=== PATIENT | female | born 1950 | race Hispanic/Latino ===

== ENCOUNTER 2024-08-17 09:14 | Emergency (ER) | payer MEDICARE ==
[2024-08-17] MEDS ORDERED: Dicyclomine 20 MG/2 ML VIAL ONE (09:52)
[2024-08-17] MEDS ORDERED: Ondansetron PF 4 MG/2 ML Vial ONE (09:53)
[2024-08-17 09:56] LABS: #Basophils 0.04 10x3/uL (0.0-0.2); #Eosinophils Less than 0.03 10x3/uL (0.0-0.7); %Basophils 0.3 % (0.0-1.0); %Eosinophils 0.1 % (0.0-10.0); %Lymphocytes 11.3 % (21.0-51.0); %Monocytes 12.2 % (0.0-10.0); %Neutrophils 75.5 % (42.0-75.0); Hematocrit 40.5 % (36.0-47.0); Mean Corpuscular HGB CONC 32.1 g/dL (32.0-36.0); Mean Corpuscular Hemoglobin 29.3 pg (27.0-31.0); Mean Corpuscular Volume 91.4 fL (78.0-98.0); Mean Platelet Volume 9.6 fL (7.4-10.4); Platelet Count 305 10x3/uL (130-400); RBC Distribution Width 13.1 % (11.5-14.5); Red Blood Cell (RBC) Count 4.43 mill/uL (4.20-5.40)
[2024-08-17 10:25] LABS: ALT (SGPT) 19 U/L (8-55); AST (SGOT) 25 U/L (5-34); Albumin 2.7 g/dL (3.4-4.8); Alkaline Phosphatase 90 U/L (40-110); Anion Gap 16 mmol/L (10-20); BUN (Urea Nitrogen) 16 mg/dL (9.8-20.1); Bilirubin, Total 0.6 mg/dL (0.2-1.2); Calc. Creatinine Clearance 0 mL/min (70-130); Calcium 9.2 mg/dL (7.8-10.44); Carbon Dioxide 23 mmol/L (23-31); Chloride 95 mmol/L (98-107); Estimated GFR 46; Globulin 4.3 g/dL (2.4-3.5); Glucose 373 mg/dL (83-110); Lipase 18 U/L (8-78); Potassium 5.3 mmol/L (3.5-5.1); Sodium 129 mmol/L (136-145)
[2024-08-17 10:28] LABS: Troponin I Less than 0.010 ng/mL (< 0.028)
[2024-08-17] MEDS ORDERED: Iopamidol-370 76% 500 ML MDV (1 ML CHARGE) ONE (10:28)
[2024-08-17 10:54] LABS: Bilirubin Negative (Negative); Blood, Urine 1+ (Negative); CAUTI Indications for Culture Pelvic or flank pain; Clarity Turbid (Clear); Glucose, Urine (Dipstick) Greater than 1000 mg/dL (Negative); Ketone, Urine 40 mg/dL (Negative); Leukocyte 500 Leu/uL (Negative); Nitrite Negative (Negative); Protein, Urine (Dipstick) 20 mg/dL (Neg-Trace); Specific Gravity, Urine 1.014 (1.002-1.036); Urobilinogen Normal mg/dL (Less than 2); WBC/HPF Greater than 50 HPF (0-3); pH, Urine 5.5 (5.0-9.0)
[2024-08-17 10:55] LABS: Bacteria/HPF 1+ HPF (None Seen)
[2024-08-17 10:56] LABS: Urine Culture Reflex Yes Yes
[2024-08-17] MEDS ORDERED: cefTRIAXone (ROCEPHIN) 2 GM VIAL ONE (11:10)
[2024-08-17] MEDS ORDERED: Sodium Chloride 0.9% 100 ML ONE (11:10)
== END 2024-08-17 12:44 | disposition home or self-care (01) ==
LOC: ERS 09:14
DX: N39.0 Urinary tract infection, site not specified (principal); E11.9 Type 2 diabetes mellitus without complications; I10 Essential (primary) hypertension
CPT/HCPCS: 71045; 74177; 80053; 81001; 83690; 83735; 83880; 84484; 85025; 87077; 87086; 87186; 87428; 93005; 96365; 96372; 96375; 99285; J0696; J2405; Q9967; 36415

== ENCOUNTER 2024-12-24 08:47 | Emergency (ER) | payer MEDICARE ==
[2024-12-24] MEDS ORDERED: Dicyclomine 20 MG TAB ONE (09:48)
[2024-12-24] MEDS ORDERED: Ondansetron PF 4 MG/2 ML Vial ONE ×2 (09:48→10:03)
[2024-12-24 09:55] LABS: #Basophils Less than 0.03 10x3/uL (0.0-0.2); %Basophils 0.1 % (0.0-1.0); %Eosinophils 0.3 % (0.0-10.0); %Lymphocytes 8.2 % (21.0-51.0); %Monocytes 6.1 % (0.0-10.0); %Neutrophils 84.7 % (42.0-75.0); Hematocrit 42.3 % (36.0-47.0); Hemoglobin 14.2 g/dL (12.0-16.0); Mean Corpuscular HGB CONC 33.6 g/dL (32.0-36.0); Mean Corpuscular Hemoglobin 29.5 pg (27.0-31.0); Mean Corpuscular Volume 87.8 fL (78.0-98.0); Platelet Count 274 10x3/uL (130-400); RBC Distribution Width 13.6 % (11.5-14.5); Red Blood Cell (RBC) Count 4.82 mill/uL (4.20-5.40)
[2024-12-24 10:46] LABS: Troponin I Less than 0.010 ng/mL (< 0.028)
[2024-12-24] MEDS ORDERED: Iopamidol 370 76% 100 ML VIAL ONE (11:05)
[2024-12-24 11:32] LABS: ALT (SGPT) 17 U/L (Less than 34); AST (SGOT) 25 U/L (11-34); Albumin 3.2 g/dL (3.1-4.5); Alkaline Phosphatase 59 U/L (40-110); Anion Gap 14 mmol/L (10-20); BUN (Urea Nitrogen) 30 mg/dL (9.8-20.1); Bilirubin, Total 0.5 mg/dL (0.3-1.2); Calc. Creatinine Clearance 0 mL/min (70-130); Calcium 8.7 mg/dL (7.8-10.44); Carbon Dioxide 22 mmol/L (23-31); Chloride 99 mmol/L (98-107); Estimated GFR 55; Globulin 3.5 g/dL (2.4-3.5); Glucose 226 mg/dL (83-110); Lipase 14 U/L (8-78); Magnesium 1.7 mg/dL (1.6-2.6); Potassium 4.2 mmol/L (3.5-5.1); Protein, Total 6.7 g/dL (5.8-8.1); Sodium 131 mmol/L (136-145)
[2024-12-24] MEDS ORDERED: Famotidine/PF 20 mg/2ml Vial ONE (12:47)
[2024-12-24 13:47] LABS: Bilirubin Negative (Negative); Blood, Urine Trace (Negative); CAUTI Indications for Culture Pelvic or flank pain; Clarity Clear (Clear); Glucose, Urine (Dipstick) Greater than 1000 mg/dL (Negative); Ketone, Urine 60 mg/dL (Negative); Leukocyte 25 Leu/uL (Negative); Nitrite 2+ (Negative); Protein, Urine (Dipstick) 10 mg/dL (Neg-Trace); Squamous Epithelial 0-3 HPF (0-3); Urobilinogen Normal mg/dL (Less than 2); pH, Urine 6.5 (5.0-9.0)
[2024-12-24 13:49] LABS: Bacteria/HPF 1+ HPF (None Seen)
[2024-12-24 13:50] LABS: Urine Culture Reflex No No
[2024-12-24] MEDS ORDERED: Sodium Chloride 0.9% 100 ML ONE (14:22)
[2024-12-24] MEDS ORDERED: cefTRIAXone (ROCEPHIN) 1 GM VIAL ONE (14:22)
== END 2024-12-24 14:42 | disposition home or self-care (01) ==
LOC: ERS 08:47
DX: N39.0 Urinary tract infection, site not specified (principal); K29.80 Duodenitis without bleeding; K29.70 Gastritis, unspecified, without bleeding; I10 Essential (primary) hypertension; E11.65 Type 2 diabetes mellitus with hyperglycemia
CPT/HCPCS: 71045; 74177; 80053; 81001; 83690; 83735; 84484; 85025; 87077; 87086; 87186; 93005; J0696; J2405; J3490; 36415; 96374; 96375; Q9967